=== PATIENT | male | born 1965 | race Caucasian/White ===

== ENCOUNTER → 2020-07-27 10:37 | Outpatient (CLI) | payer OTHER, SELFPAY ==
--- NOTE | 2020-07-27 10:40 | DI.RAD.S_ITS ---
PROCEDURE: XR KNEE RT 3V INDICATIONS: knee pain TECHNIQUE: 3 views of the knee were acquired. COMPARISON: [facility], CR, XR KNEE LT 3V, 07/27/2020, 10:31. FINDINGS: Bones: No fractures or dislocations. No suspicious bony lesions. Soft tissues: No significant joint effusion. No suspicious soft tissue calcifications. IMPRESSION: No significant osseous abnormality identified. Dictated by: Lui Barber M.D. on 07/27/2020 at 11:12 Approved by: Lui Barber M.D. on 07/27/2020 at 11:13
--- NOTE | 2020-07-27 10:40 | DI.RAD.S_ITS ---
PROCEDURE: XR KNEE LT 3V INDICATIONS: knee pain TECHNIQUE: 3 views of the knee were acquired. COMPARISON: [facility], CR, XR KNEE RT 3V, 07/27/2020, 10:31. FINDINGS: Bones: No fractures or dislocations. No suspicious bony lesions. Tiny patellar osteophytes. Soft tissues: No joint effusion. No suspicious soft tissue calcifications. IMPRESSION: Tiny patellar osteophytes. No fracture or dislocation. Dictated by: Lui Barber M.D. on 07/27/2020 at 11:14 Approved by: Lui Barber M.D. on 07/27/2020 at 11:14
== END ==
PROVIDERS: Referring Provider Physician Assistant; Visit Provider Physician Assistant
DX: M25.561 Pain in right knee (principal); M25.562 Pain in left knee
CPT/HCPCS: 73562

== ENCOUNTER → 2024-09-20 14:32 | Outpatient (CLI) | payer OTHER, SELFPAY ==
--- NOTE | 2024-09-20 14:34 | DI.RAD.S_ITS ---
PROCEDURE: XR SHOULDER LT MIN 2V INDICATIONS: Left shoulder pain TECHNIQUE: 3 views of the shoulder were acquired. COMPARISON: None. FINDINGS: Bones: No fractures or dislocations. No suspicious bony lesions. Visualized ribs appear intact. Mild osteoarthritis at the AC joint Soft tissues: No suspicious soft tissue calcifications. IMPRESSION: AC joint osteoarthritis, mild in overall severity, no acute disease. Dictated by: Savage Colon M.D. on 09/20/2024 at 15:01 Approved by: Savage Colon M.D. on 09/20/2024 at 15:01
== END ==
PROVIDERS: Referring Provider Registered Nurse; Visit Provider Registered Nurse
DX: M19.012 Primary osteoarthritis, left shoulder (principal); M25.512 Pain in left shoulder
CPT/HCPCS: 73030

== ENCOUNTER → 2024-11-04 13:45 | Outpatient (CLI) | payer OTHER, SELFPAY ==
--- NOTE | 2024-11-04 13:46 | DI.MRI.S_ITS ---
PROCEDURE: MR SHOULDER LT WO CON INDICATIONS: rotator cuff tear r/o TECHNIQUE: Noncontrast oblique coronal T2 fast spin echo with fat saturation, oblique sagittal T1 spin echo and T2 fast spin echo with fat saturation, axial T1 spin echo and T2 fast spin echo with fat saturation through the shoulder. COMPARISON: None. FINDINGS: Image quality: Excellent. Rotator cuff: Mild tendinosis of the supraspinatus, with bursal sided fraying. Mild tendinosis of the infraspinatus. The teres minor is unremarkable. The subscapularis is unremarkable. No muscle edema or fatty atrophy. Bones and bursae: Moderate degenerative changes of the acromioclavicular joint. Type 1 acromion. No os acromiale. Mild subacromial/subdeltoid bursitis. No acute fracture. No focal chondral defect of the glenohumeral articulation. Capsule and soft tissues: Superior labral tear, extending anteriorly to the anterior superior labrum and posteriorly to the posterior labrum.. No paralabral cyst. Mild tenosynovitis of the extra-articular biceps tendon. Mild tendinosis of the intra-articular biceps tendon. No significant glenohumeral effusion. No intra-articular body. IMPRESSION: 1. Mild tendinosis of the supraspinatus with bursal sided fraying. 2. Moderate degenerative changes of the acromioclavicular joint. 3. Labral tear. No paralabral cyst. 4. Mild tenosynovitis of the extra-articular biceps tendon. Mild tendinosis of the intra-articular biceps tendon. Dictated by: Tamanna Saenz M.D. on 11/04/2024 at 15:11 Approved by: Tamanna Saenz M.D. on 11/04/2024 at 15:20
== END ==
PROVIDERS: Referring Provider Orthopaedic Surgery; Visit Provider Orthopaedic Surgery
DX: S43.432A Superior glenoid labrum lesion of left shoulder, initial encounter (principal); M75.22 Bicipital tendinitis, left shoulder; M75.52 Bursitis of left shoulder; M25.512 Pain in left shoulder
CPT/HCPCS: 73221

== ENCOUNTER → 2025-08-01 08:45 | Outpatient (CLI) | payer OTHER, SELFPAY ==
[2025-08-01 10:01] LABS: Hematocrit 43.5 % (41-53); Hemoglobin 14.7 g/dL (13.5-17.5); Mean Corpuscular HGB Conc 33.8 % (30-36); Mean Corpuscular Hemoglobin 29.4 PG (26-34); Mean Corpuscular Volume 87.0 fL (80-100); Platelet Count 307 X10^3/uL (150-400)
[2025-08-01 10:16] LABS: Hemoglobin A1C% w Est Avg Glu 6.1 % (4.0-6.0)
[2025-08-01 10:31] LABS: Alanine Aminotransferase 12 IU/L (<50); Albumin 4.1 g/dL (3.5-5.0); Albumin Globulin Ratio 1.5 (1.0-2.8); Alkaline Phosphatase 60 U/L (38-126); Blood Urea Nitrogen 13 mg/dL (9-20); Calcium 9.0 mg/dL (8.4-10.2); Carbon Dioxide 24 mmol/L (22-32); Chloride 107 mmol/L (98-107); Cholesterol 223 mg/dL (140-199); Estimated Glomerular Filt Rate > 60 mL/min (>60); Globulin 2.7 g/dL (1.7-4.1); Glucose 107 mg/dL (70-99); HDL Cholesterol 50 mg/dL (40-60); HEMOLYSIS < 15 (0-50); Potassium 4.3 mmol/L (3.4-5.1); Sodium 138 mmol/L (137-145); Total Protein 6.8 g/dL (6.3-8.2); Triglycerides 99 mg/dL (35-150)
[2025-08-01 11:20] LABS: HIV 1 & 2 Ab/Ag 4th Gen Combo NEGATIVE (NEGATIVE); Hep C Virus Ab w/Reflex Quant NEGATIVE s/c (NEGATIVE)
== END ==
PROVIDERS: PCP Family Medicine; Referring Provider Family Medicine; Visit Provider Family Medicine
DX: Z76.89 Persons encountering health services in other specified circumstances (principal); Z13.9 Encounter for screening, unspecified; Z11.59 Encounter for screening for other viral diseases; Z13.1 Encounter for screening for diabetes mellitus; Z12.5 Encounter for screening for malignant neoplasm of prostate
CPT/HCPCS: 36415; 80053; 80061; 83036; 85027; 86803; 87389; G0103

== ENCOUNTER → 2025-09-09 10:39 | Outpatient (CLI) | payer OTHER, SELFPAY ==
--- NOTE | 2025-09-09 10:40 | DI.MRI.S_ITS ---
PROCEDURE: MR SHOULDER LT WO CON INDICATIONS: chronic left shoulder pain, lt arm paresthesia, labral tear TECHNIQUE: Noncontrast oblique coronal T2 fast spin echo with fat saturation, oblique sagittal T1 spin echo and T2 fast spin echo with fat saturation, axial T1 spin echo and T2 fast spin echo with fat saturation through the shoulder. COMPARISON: [facility], MR, MR SHOULDER LT WO CON, 11/04/2024, 14:00. FINDINGS: Image quality: Excellent. Rotator cuff: Low to moderate grade articular and bursal surface partial thickness tear involving distal supraspinatus at its insertion on humeral head extending to musculotendinous junction. Distal infraspinatus tendinosis is seen. Amorphous calcifications are noted involving distal supraspinatus at its insertion on humeral head suggestive of hydroxyapatite deposition disease. Distal subscapularis tendinosis is seen. Sagittal images demonstrate no significant rotator cuff muscle atrophy. Bones and bursae: No bone marrow contusions or fractures. [id number] acromioclavicular joint osteoarthritic changes are seen with joint space narrowing and downward osteophyte formation depressing on musculotendinous junction of supraspinatus. Mild glenohumeral joint osteoarthritic changes also seen. without an os acromiale. Small amount of joint effusion and subacromial subdeltoid bursal fluid, no loose bodies. Capsule and soft tissues: Signal abnormality and fraying involving superior anterior glenoid labrum concerning for subtle superior anterior glenoid labral tear. Similar signal abnormality and T2 hyperintense signal involving anterior inferior glenoid labrum is also noted. The long head of the biceps tendon appears thickened at its proximal insertion. IMPRESSION: 1. Suggestion of calcific tendinitis involving distal supraspinatus at its insertion on humeral head. 2. Low-grade articular and bursal surface partial thickness tear involving distal supraspinatus at its insertion on humeral head extending to musculotendinous junction. 3. Distal infraspinatus and subscapularis tendinosis. No full-thickness rotator cuff tendon rupture. 4. [id number] acromioclavicular joint osteoarthritis and mild glenohumeral joint osteoarthritis. Small amount of joint effusion and subacromial subdeltoid bursal fluid. No loose bodies. 5. Suggestion of superior anterior glenoid labral tear and anterior inferior glenoid labral tear. 6. Proximal long head of biceps tendinosis. Dictated by: Jose Sommers M.D. on 09/09/2025 at 11:19 Approved by: Jose Sommers M.D. on 09/09/2025 at 11:32
== END ==
LOC: MRI 10:39
PROVIDERS: PCP Family Medicine; Referring Provider Family Medicine; Visit Provider Family Medicine
DX: S43.432A Superior glenoid labrum lesion of left shoulder, initial encounter (principal); R20.2 Paresthesia of skin; M75.112 Incomplete rotator cuff tear or rupture of left shoulder, not specified as traumatic; M19.012 Primary osteoarthritis, left shoulder; M25.412 Effusion, left shoulder
CPT/HCPCS: 73221

== ENCOUNTER 2025-10-01 07:24 | Day surgery (SDC) | payer OTHER, SELFPAY ==
[2025-09-26 08:12] VITALS: BMI 31.9
[2025-10-01] VITALS (22 sets, daily range): BP systolic 52–132; BP diastolic 25–77; PULSE 52–90; RESP 9–33; TEMP 36.1–36.6; O2SAT 90–98
--- NOTE | 2025-10-01 08:23 | PM.PREOP ---
Pre-operative Note COVID-19 COVID-19 status: Not tested Interval Note History & Physical reviewed/Exam performed by Physician: Yes Changes to H&P: No
--- NOTE | 2025-10-01 08:32 | SUR.OPER ---
Beach chair withshoulder positioner. Lower body on padded OR bed. Head in foam padded head cradle, secured with straps. Non-operative arm secured <90 degrees abduction. Pillow under knees. Safety belt at thigh. Hip positioner. gel pad to heels. Cloth tape over blanket over lower legs.
[2025-10-01] MEDS: LACTATED RINGERS 1,000 ML 42 ML IV ×2 (08:34→10:53)
[2025-10-01] MEDS: ACETAMINOPHEN IV 1,000 MG/100 ML VIAL 400 MG IV (09:05)
[2025-10-01] MEDS: SODIUM CHLORIDE IRRIG SOLUTION 3,000 ML, EPINEPHrine 3 MG IRR (09:34)
--- NOTE | 2025-10-01 10:23 | PM.OP.1 ---
Operative Date/Time/Diagnoses Date of procedure: 10/01/25 Time of procedure: 09:17 Pre-op diagnosis: AC joint arthritis and subacromial bursitis Post-op diagnosis: same Procedure & Clinicians Procedure: 1. L shoulder arthroscopy with subacromial decompression 2. L shoulder SLAP debridement 3. Open distal clavicle excision Same procedure(s) as scheduled: Yes Surgeon: La Mackay Assisted?: Yes Pattern Vault Clerk: Prudence Dixon Anesthesia Type: General Operative Notes Findings: see below Closure Type: primary Specimen(s): none sent Applied: none Estimated Blood Loss (mL): 10 Blood products transfused: none Procedure in detail: Preoperative diagnosis: 1. L shoulder subacromial bursitis ?2. L shoulder ac joint arthritis Postoperative diagnosis: 1. Type I SLAP tear 2.? Subacromial bursitis 3. R shoulder AC joint arthritis Procedure performed: 1. L shoulder arthroscopy with subacromial decompression 2. L shoulder SLAP debridement 3. Open distal clavicle excision The patient was met in the preoperative hold area the left upper extremity was signed as the correct extremity. The patient was taken back to the operating room. The patient was placed in the beach chair position. All bony prominences were padded. The patient was positioned in the beach chair ensuring his neck was in neutral alignment. The patient was prepped and draped in the standard sterile fashion. A time-out was performed confirming the correct patient, correct procedure, correct extremity, initials on the operative site and administration of IV antibiotics A standard posterolateral viewing portal was utilized. A diagnostic arthroscopy was performed. The patient had a type 1 slap tear that was debrided. The rotator cuff was intact. I then placed the arthroscopic instruments in the subacromial space and the subacromial space was debrided. There was very thick bursitis that was debrided. THe rotator cuff was intact.? It was intact at the subacromial space and the rotator cuff moved in continuity.? Next my attention was drawn to the distal clavicle.? A saber incision was made just medial to the AC joint.? Dissection was taken down to the underlying fascia.? This was incised and thick flaps were made in line with the clavicle.? The AC joint was identified and approximately 1 cm of distal clavicle was removed with a sagittal saw.? A rasp was used to smooth the edges.? The wounds were copiously irrigated after I ensured that there was no impinging with adduction of the arm. ? All as were copiously irrigated and the arthroscopy portals were closed with 3-0 nylon. The distal clavicle fascia was closed with 0 Ethibond.? And the incision was closed with 2-0 vicryl and 3-0 Nylon.? A sterile dressing was applied of Xeroform, plain gauze, and tegaderm. At the end of the surgery a total of 20 cc of 0.25% Marcaine was placed into the incision sites. Patient was awoken and taken to the PACU in stable condition. Complications: none Post-operative Condition: stable Complications: none Post-operative Condition: stable Disposition: PACU
[2025-10-01] MEDS: fentaNYL 100 MCG/2 ML INJ 25 MCG IV ×2 (11:09→11:16)
--- NOTE | 2025-10-01 11:20 | SUR.PHASEI ---
Patient medicated for low BP by anesthesia provider, Soha. Patient placed in trendelenburg and fluids increased, without improvement of BP. + radial and pedal pulses. Patient responded mildy to sternal rub.
--- NOTE | 2025-10-01 11:26 | SUR.PHASEI ---
Patient reported left wrist pain, 10/10, no edema noted. Pain increases with movement. Ice appied. Dr. Mackay notified and she evaluated patient. No new orders.
[2025-10-01] MEDS: fentaNYL 100 MCG/2 ML INJ 50 MCG IV (11:28)
--- NOTE | 2025-10-01 11:54 | SUR.PHASEI ---
Block start time 1135, with a time out at t 1132 . Monitoring initiated and maintained throughout procedure. Patient remained stable throughout procedure, no adverse reactions noted. Block end time 1145.
== END 2025-10-01 13:23 | disposition home or self-care (01) ==
PROVIDERS: PCP Family Medicine; Referring Provider Family Medicine; Visit Provider Orthopaedic Surgery
PROC: (CPT 29805; principal; 2025-10-01 08:45)
DX: M19.012 Primary osteoarthritis, left shoulder (principal); M75.52 Bursitis of left shoulder; S43.432A Superior glenoid labrum lesion of left shoulder, initial encounter; M75.42 Impingement syndrome of left shoulder; G89.18 Other acute postprocedural pain
CPT/HCPCS: 29822; 23120; 29826; 64450; 82962; J0131; J0165; J0689; J1100; J2250; J2704; J3010; J7120